=== PATIENT | female | born 1955 ===

== ENCOUNTER → 2019-03-25 07:51 | Outpatient (CLI) | payer BC, SELFPAY ==
--- NOTE | ~2019-03-25 | DEXA_ITS ---
Bone Density Report Name: Nelida Roe Age: 63 Sex: Female Ethnicity: White Date of : 1955 Indication: postmenopausal; screening for osteoporosis; Referring Provider: CASS GARAY Study: Bone densitometry was performed. Exam Date: March 25, 2019 Accession number: [id number] Bone Density: Region BMD T-score Z-score Classification AP Spine (L1-L4) 0.915 -1.2 0.4 Osteopenia Femoral Neck (Left) 0.760 -0.8 0.6 Normal Total Hip (Left) 0.930 -0.1 1.0 Normal Femoral Neck (Right) 0.749 -0.9 0.5 Normal Total Hip (Right) 0.857 -0.7 0.4 Normal Total Hip Mean 0.894 -0.4 0.7 Normal World Health Organization criteria for BMD impression classify patients as: Normal (T-score at or above -1.0), Osteopenia (T-score between -1.0 and -2.5), or Osteoporosis (T-score at or below -2.5). 10-year Fracture Risk(1): Major Osteoporotic Fracture 3.9% Hip Fracture 0.2% Reported Risk Factors: [place] (), Neck BMD=0.749, BMI=22.9 (1) FRAX(R) Version 3.08. Fracture probability calculated for an untreated patient. Fracture probability may be lower if the patient has received treatment. Clinical Information Provided by Patient: No regular weight bearing exercise Does not regularly consume dairy products Number of children 2 Impression: The patient has low bone mass, based on the Total Spine T-score. The patient has an estimated ten-year risk of hip fracture of 0.2% and an estimated ten-year risk of major fracture of 3.9%, based on the WHO FRAX algorithm. Discussion: BONE DENSITY IS LOW AT ONE OR MORE SKELETAL SITES. This patient's lowest T-score is low at one or more skeletal sites. It meets the World Health Organization's (WHO) criteria for ?low bone mass? (T-score between -1.0 and -2.5). The patient's 10-year risk of fracture as calculated by FRAX is less than the threshold where pharmacological therapy is recommended by the National Osteoporosis Foundation (NOF). However, all treatment decisions require clinical judgment and consideration of individual patient factors, including patient preferences, comorbidities, previous drug use, risk factors not captured in the FRAX model (e.g., frailty, falls, vitamin D deficiency, increased bone turnover, interval significant decline in bone density) and possible under or overestimation of fracture risk by FRAX. The patient should follow a healthful lifestyle (good nutrition with adequate calcium and vitamin D, and appropriate weight-bearing exercise). Follow-Up: Consider repeating this study in 2 to 3 years to reassess this patient's status, or sooner if there is some new clinical indication. Reported by: [facility] on 03/25/2019 8:53:00 AM. Reviewed, dictated and finalized at location [id number] [id number]
--- NOTE | ~2019-03-25 | US_ITS ---
EXAMINATION: US abdomen complete EXAM DATE: 03/25/2019 08:40 INDICATION: Liver disease. TECHNIQUE: Multiple grayscale and Doppler images of the complete abdomen were obtained (by a technolo gist who performed the scan) and subsequently reviewed. There is no prior study for comparison. FINDINGS: The abdominal aorta is normal in caliber. Visualized portion IVC is patent. The pancreatic head a nd body are normal in appearance. The pancreatic tail is not visualized. Mildly echogenic liver parenchyma, hepatic steatosis. There are no focal liver lesions identified. There is no evidence of intrahepatic biliary duct dilation. Portal venous flow was seen in the hepa topedal, normal direction and has normal Doppler waveform. Common bile duct measures 4 mm, which is normal. The gallbladder wall is normal in thickness, with ex pected amount of distention. No sonographic evidence of pericholecystic fluid. There is no cholelit hiases. Technologist performing exam reports patient did not demonstrate sonographic Malik's sign. Please note that this sign is less reliable in patients who have received pain medication. Right kidney: There is normal contour and echogenicity. It measures 10.3 x 3.5 x 4.7 centimeters. There are no focal renal lesions identified. There is no hydronephrosis. Left kidney: There is normal contour and echogenicity. It measures 10.4 x 4.5 x 5.3 centimeters. T here are no focal renal lesions identified. There is no hydronephrosis. The spleen measures 8.6 centimeters and is morphologically normal. IMPRESSION: 1. Hepatic steatosis. Reviewed, dictated and finalized at location A. THERAPIST IMPRESSION: 1. Hepatic steatosis.
== END ==
PROVIDERS: PCP Emergency Medicine; Visit Provider Emergency Medicine
DX: K76.0 Fatty (change of) liver, not elsewhere classified (principal); Z78.0 Asymptomatic menopausal state; M85.88 Other specified disorders of bone density and structure, other site
CPT/HCPCS: 76700; 77080